=== PATIENT | female | born 1990 | race Two or more races ===

== ENCOUNTER 2019-07-02 23:47 | Emergency (ER) | payer MEDICAID ==
[~2019-07-02] VITALS: Ht 154.9 cm; Wt 72.6 kg
[2019-07-03 02:31] VITALS: BP 158/89
== END 2019-07-03 02:48 | disposition home or self-care (01) ==
LOC: ER 23:51
DX: F41.9 Anxiety disorder, unspecified (principal); R06.02 Shortness of breath